=== PATIENT | female | born 1990 | race African-American/Black ===

== ENCOUNTER → 2016-10-29 | Day surgery (SDC) | payer BC ==
[~2016-10-29] MED LIST: IBUP800T23 PO; PROPOFOL 200 MG/20 ML AMP IV ONE; ROBA750T3 PO
--- NOTE | 2016-10-29 09:41 | GIPROC ---
[facility] [address] [facility], [address] EGD PROCEDURE REPORT EXAM DATE: 10/29/2016 PATIENT NAME: Nicolle Hahn MR #: [id number] BIRTHDATE: 1990 ATTENDING: Vipul Gutiérrez MD ORDER #: [id number] CUSTOMER COMPLAINT SERVICE SUPERVISOR: Page Weeks RN STATUS: outpatient INDICATIONS: The patient is a 25 yr old female here for an EGD due to Preoperative assessment PROCEDURE PERFORMED: EGD w/ biopsy MEDICATIONS: None and Per Anesthesia. TOPICAL ANESTHETIC: CONSENT: The patient understands the risks and benefits of the procedure and understands that these risks include, but are not limited to: sedation, allergic reaction, infection, perforation and/or bleeding. Alternative means of evaluation and treatment include, among others: physical exam, x-rays, and/or surgical intervention. The patient elects to proceed with this endoscopic procedure. medical equipment was checked for proper function. Hand hygiene and appropriate measures for infection prevention was taken. After the risks, benefits and alternatives of the procedure were thoroughly explained, Informed consent was verified, confirmed and timeout was successfully executed by the treatment team. The patient was anesthetized with topical anesthesia and the EG-[id number] ([id number]) endoscope was introduced through the mouth and advanced to the second portion of the duodenum. Retroflexed views revealed no abnormalities The gastroscope was then slowly withdrawn and removed. STOMACH: There was mild gastritis in the gastric antrum. Multiple biopsies were performed. The endoscopy was otherwise normal. ADVERSE EVENTS: There were no complications. IMPRESSIONS: 1. There was mild gastritis in the gastric antrum; multiple biopsies were performed 2. Normal endoscopy otherwise 3. Retroflexed views revealed no abnormalities RECOMMENDATIONS: 1. Await biopsy results. Biopsy results will not be ready for 7-10 days. If you don't hear from us in two weeks, call our office for biopsy results. 2. Follow-up: GI clinic PRN PATIENT CONDITION: stable DISPOSITION: Home REPEAT EXAM: Vipul Gutiérrez MD eSigned: Vipul Gutiérrez MD 10/29/2016 9:40 AM cc: Nirmal Padillark, [facility] [place]
== END | disposition home or self-care (01) ==
LOC: ESDC 08:10
PROVIDERS: ATTEND Internal Medicine Gastroenterology
DX: K29.70 Gastritis, unspecified, without bleeding (principal)
CPT/HCPCS: 00740; 43239; 88305; J3010; 88312